=== PATIENT | male | born 1975 | race Caucasian/White ===

== ENCOUNTER 2016-08-23 06:33 | Day surgery (SDC) | payer OTHER ==
[~2016-08-23] VITALS: Ht 172.7 cm; Wt 93.0 kg
[~2016-08-23 06:33] MED LIST: BUPROPION XL300 MG PO; LIBRIUM25 MG PO; PERCOCET 5/31 TABLET PO; TRAZODONE HCL50 MG PO; WELLBUTRIN SR150 MG PO; WELLBUTRIN XL150 MG PO; ZOLOFT50 MG PO
[2016-08-23 07:13] VITALS: BP 120/83
[2016-08-23] MEDS ORDERED: PERCOCET 5/31 TABLET PO (10:23)
[2016-08-23] MEDS ORDERED: COLACE100 MG PO (10:23)
[2016-08-23 11:35] VITALS: BP 136/92
[2016-08-23 12:00] VITALS: BP 124/93
== END 2016-08-23 13:40 | disposition home or self-care (01) ==
LOC: SDC
PROC: 0WUF4JZ Supplement Abdominal Wall with Synthetic Substitute, Percutaneous Endoscopic Approach (ICD-10-PCS; principal; 2016-08-23)
DX: K42.9 Umbilical hernia without obstruction or gangrene (principal); G89.29 Other chronic pain; M25.572 Pain in left ankle and joints of left foot; F32.9 Major depressive disorder, single episode, unspecified; F17.200 Nicotine dependence, unspecified, uncomplicated; E66.9 Obesity, unspecified; Z68.31 Body mass index [BMI] 31.0-31.9, adult
CPT/HCPCS: C1781; J0330; J0690; J1100; J1170; J1885; J2250; J2405; J2710; J3010